=== PATIENT | male | born 1950 | race African-American/Black ===

== ENCOUNTER 2023-10-04 15:31 | Emergency (ER) | payer MEDICARE, MEDICAID ==
[~2023-10-04] VITALS: Ht 170.2 cm; Wt 80.0 kg
[2023-10-04 15:33] VITALS: BP 151/71; PULSE 74; RESP 16; TEMP 98.5; O2SAT 99
[2023-10-04 17:15] LABS: BASOPHILS % 0.5 % (0.0-2.0); EOSINOPHILS % 1.2 % (0.0-5.0); HEMATOCRIT. 42.7 % (42.0-52.0); HEMOGLOBIN. 14.2 g/dL (14.0-18.0); LYMPHOCYTES % 39.9 % (20.0-50.0); MEAN CORPUSCULAR HEMOGLOBIN 30.3 pg (28.0-32.0); MEAN CORPUSCULAR HGB CONC 33.3 g/dL (31.0-37.0); MEAN PLATELET VOLUME 9.1 fl (7.4-10.4); MONOCYTES % 7.4 % (2.0-8.0); PLATELET 183 x1000/uL (130-400); RED BLOOD CELL COUNT 4.69 mill/uL (4.7-6.1); RED CELL DISTRIBUTION WIDTH 15.1 % (11.6-14.6); WHITE BLOOD COUNT 7.5 x1000/uL (4.5-11.0)
[2023-10-04 17:19] LABS: CHLORIDE 107 mEq/L (98-107); POTASSIUM 4.1 mEq/L (3.5-5.1); SODIUM 140 mEq/L (136-145)
[2023-10-04 17:20] LABS: CARBON DIOXIDE 26 mEq/L (21-32)
[2023-10-04 17:21] LABS: CALCIUM 9.5 mg/dL (8.7-10.4)
[2023-10-04 17:25] LABS: CREATININE 1.2 mg/dL (0.6-1.3); GLUCOSE 89 mg/dL (70-105)
[2023-10-04 17:26] LABS: UREA NITROGEN BLOOD 19 mg/dL (9-23)
[2023-10-04 17:27] LABS: ALANINE AMINOTRANSFERASE 16 IU/L (10-49); ALBUMIN 4.4 g/dL (3.2-4.8); ASPARTATE AMINOTRANSFERASE 27 IU/L (<34)
[2023-10-04 17:28] LABS: BILIRUBIN TOTAL 0.4 mg/dL (0.1-1.0); PROTEIN TOTAL 7.4 g/dL (6.0-8.3)
[2023-10-04] MEDS ORDERED: IOHEXOL-350 100 ML BOTTLE ONE (23:48)
== END 2023-10-04 20:12 | disposition home or self-care (01) ==
LOC: ER 15:31
DX: R68.89 Other general symptoms and signs (principal); I10 Essential (primary) hypertension
CPT/HCPCS: 99285; 70496; 80053; 85025; 36415; Q9967